=== PATIENT | male | born 1955 | race Caucasian/White ===

== ENCOUNTER 2021-07-08 15:48 | Emergency (ER) | payer MEDICARE ==
[2021-07-08 16:20] LABS: BASO # 0.02 K/mm3 (0.02-0.10); HEMATOCRIT 49.2 % (42.0-52.0); HEMOGLOBIN 16.9 g/dL (13.5-18.0); LYMPH# 1.27 K/mm3 (1.50-4.00); MEAN CELL VOLUME 92 fl (78-100); MEAN CORPUSCULAR HEMOGLOBIN 32 pg (27-31); MEAN CORPUSCULAR HGB CONC 34 g/dL (33-37); MEAN PLATELET VOLUME 9.2 fl (7.4-10.4); MONO # 0.57 K/mm3 (0.20-0.80); NEU # 2.33 K/mm3 (1.40-6.50); PLATELET COUNT 143 K/mm3 (130-400); RED BLOOD COUNT 5.33 M/mm3 (4.20-5.60); RED CELL DISTRIBUTION WIDTH 12.6 % (11.5-14.5); WHITE BLOOD COUNT 4.2 K/mm3 (4.8-10.8)
[2021-07-08 16:33] LABS: ALBUMIN 3.7 g/dL (3.4-4.8); POTASSIUM 4.4 mmol/L (3.5-5.1)
[2021-07-08 16:34] LABS: CALCIUM 8.8 mg/dL (8.3-10.5)
[2021-07-08 16:37] LABS: TOTAL BILIRUBIN 0.4 mg/dL (0.2-1.2)
[2021-07-08 16:46] LABS: D-DIMER 1.25 mg/L FEU (0.15-0.50)
[2021-07-08] MEDS ORDERED: NITROSTAT0.4 M1 SL (16:46)
[2021-07-08] MEDS ORDERED: VITAMIN C500 M6 (16:47)
[2021-07-08 17:00] LABS: TROPONIN-I 0.09 ng/mL (<0.030)
[2021-07-08] MEDS ORDERED: VITAMIN B12 781 TAB (18:13)
[2021-07-08 21:05] VITALS: BP 80/65
== END 2021-07-08 21:05 | disposition short-term general hospital (02) ==
LOC: ED 15:48
PROVIDERS: Physician Assistant
DX: U07.1 COVID-19 (principal); J12.82 Pneumonia due to coronavirus disease 2019; R74.8 Abnormal levels of other serum enzymes; I25.10 Atherosclerotic heart disease of native coronary artery without angina pectoris; F17.200 Nicotine dependence, unspecified, uncomplicated; Z95.9 Presence of cardiac and vascular implant and graft, unspecified
CPT/HCPCS: J0696; J1100; J2270; J7030; Q9967

== ENCOUNTER → 2021-09-21 | Outpatient (CLI) | payer MEDICARE ==
[~2021-09-21] MED LIST: NITROSTAT0.4 M1 SL; VITAMIN B12 781 TAB; VITAMIN C500 M6
[2021-09-21 14:33] LABS: BASO # 0.11 K/mm3 (0.02-0.10); EOS # 0.25 K/mm3 (0.04-0.40); EOS % 2.8 % (0.0-4.0); HEMATOCRIT 46.3 % (42.0-52.0); HEMOGLOBIN 15.5 g/dL (13.5-18.0); LYMPH# 2.26 K/mm3 (1.50-4.00); MEAN CELL VOLUME 95 fl (78-100); MEAN CORPUSCULAR HEMOGLOBIN 32 pg (27-31); MEAN CORPUSCULAR HGB CONC 34 g/dL (33-37); MEAN PLATELET VOLUME 8.8 fl (7.4-10.4); MONO # 0.98 K/mm3 (0.20-0.80); NEU # 5.35 K/mm3 (1.40-6.50); PLATELET COUNT 283 K/mm3 (130-400); RED BLOOD COUNT 4.87 M/mm3 (4.20-5.60); RED CELL DISTRIBUTION WIDTH 13.3 % (11.5-14.5)
[2021-09-21 14:49] LABS: ALBUMIN 4.1 g/dL (3.4-4.8); POTASSIUM 4.4 mmol/L (3.5-5.1)
[2021-09-21 14:50] LABS: CALCIUM 9.6 mg/dL (8.3-10.5)
[2021-09-21 14:52] LABS: TOTAL PROTEIN 7.3 g/dL (6.2-8.1)
[2021-09-21 14:54] LABS: TOTAL BILIRUBIN 0.6 mg/dL (0.2-1.2)
[2021-09-21 14:58] LABS: MAGNESIUM 1.86 mg/dL (1.60-2.60)
[2021-09-21 15:49] LABS: ERYTHROCYTE SEDIMENTATION RATE 13 mm/hr (0-20)
[2021-09-22 00:53] LABS: FOLLICLE STIMULATING HORMONE 4.7 mIU/mL (1.0-12.0); LUTENIZING HORMONE 2.5 mIU/mL (0.6-12.1); PROLACTIN AMS 10.6 ng/mL (3.5-19.4)
== END ==
LOC: LAB 14:20
PROVIDERS: Internal Medicine
DX: I25.10 Atherosclerotic heart disease of native coronary artery without angina pectoris (principal); K90.9 Intestinal malabsorption, unspecified; E23.0 Hypopituitarism

== ENCOUNTER 2024-09-03 14:51 | Emergency (ER) | payer MEDICARE ==
[~2024-09-03] VITALS: Ht 185.4 cm; Wt 104.5 kg
[2024-09-03] MEDS ORDERED: NEBULIZER1 EACH MC (16:32)
[2024-09-03] MEDS ORDERED: ALBUTEROL2.5 MG/3 M IH (16:32)
[2024-09-03 16:42] VITALS: BP 126/99
== END 2024-09-03 16:49 | disposition home or self-care (01) ==
LOC: ED 14:51
DX: J10.1 Influenza due to other identified influenza virus with other respiratory manifestations (principal); R09.02 Hypoxemia; F15.10 Other stimulant abuse, uncomplicated